=== PATIENT | female | born 1985 | race Hispanic/Latino ===

== ENCOUNTER 2023-09-12 05:53 | Day surgery (SDC) | payer OTHER ==
[2023-09-10 15:46] VITALS: BMI 32.2
[2023-09-12] MEDS ORDERED: fentaNYL PF 100 MCG/2 ML SYRINGE ONE (06:59)
[2023-09-12] MEDS ORDERED: PROPOFOL 40 ML ONE (06:59)
[2023-09-12] MEDS ORDERED: Lidocaine 1% PF 5 ML VIAL ONE (07:00)
[2023-09-12] MEDS ORDERED: Ondansetron PF 4 MG/2 ML Vial ONE (07:03)
[2023-09-12] MEDS ORDERED: Dexamethasone 20 MG/5 ML VIAL ONE (07:03)
[2023-09-12 07:14] LABS: Hematocrit 33.8 % (36.0-47.0)
[2023-09-12] MEDS ORDERED: Ferric Subsulfate 8 ML TOPICAL SOLN ONE (07:59)
[2023-09-12] MEDS ORDERED: fentaNYL 50 mcg/mL 1 mL Vial ONE (08:46)
[2023-09-12] MEDS ORDERED: HYDROcodone/Acetaminophen 5/325 mg Tablet ONE (09:35)
== END 2023-09-12 10:40 | disposition home or self-care (01) ==
LOC: SDC 05:53
PROVIDERS: ATTEND Otolaryngology Plastic Surgery within the Head & Neck
PROC: 0CTPXZZ Resection of Tonsils, External Approach (ICD-10-PCS; principal; 2023-09-12)
PROC: 0CTQXZZ Resection of Adenoids, External Approach (ICD-10-PCS; principal; 2023-09-12)
DX: J35.3 Hypertrophy of tonsils with hypertrophy of adenoids (principal); J35.01 Chronic tonsillitis; Z98.890 Other specified postprocedural states; Z79.899 Other long term (current) drug therapy; J32.9 Chronic sinusitis, unspecified; J30.9 Allergic rhinitis, unspecified
CPT/HCPCS: 85014; 88304; J1100; J2405; J2704; J3010